=== PATIENT | male | born 1990 | race African-American/Black ===

== ENCOUNTER 2017-06-15 17:44 | Emergency (ER) | payer OTHER ==
[2017-06-15 17:55] VITALS: BP 131/69; PULSE 79; TEMP 98.2; BMI 26.4
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
== END 2017-06-15 19:07 | disposition home or self-care (01) ==
LOC: JERFT 17:44
DX: S13.4XXA Sprain of ligaments of cervical spine, initial encounter (principal); V43.52XA Car driver injured in collision with other type car in traffic accident, initial encounter; Y92.488 Other paved roadways as the place of occurrence of the external cause; Y93.89 Activity, other specified; Y99.9 Unspecified external cause status; F17.210 Nicotine dependence, cigarettes, uncomplicated
CPT/HCPCS: 99281-25